=== PATIENT | female | born 1995 | race Caucasian/White ===

== ENCOUNTER 2018-05-14 19:26 | Emergency (ER) | payer BC ==
[~2018-05-14] VITALS: Ht 162.6 cm; Wt 75.7 kg
[2018-05-14 20:00] VITALS: BP_SYST 133
[2018-05-14] MEDS ORDERED: CYCLOBENZAPRINE HCL 10 MG TABLET (FLEXERIL) PO ONE (20:30)
[2018-05-14] MEDS ORDERED: KETOROLAC TROMETHAMINE 15 MG VIAL IM ONE (20:30)
[2018-05-14 21:13] VITALS: BP_SYST 131
== END 2018-05-14 21:13 | disposition home or self-care (01) ==
LOC: SED 19:26
DX: S39.012A Strain of muscle, fascia and tendon of lower back, initial encounter (principal); X50.0XXA Overexertion from strenuous movement or load, initial encounter; Y93.89 Activity, other specified; Y92.89 Other specified places as the place of occurrence of the external cause; Y99.8 Other external cause status
CPT/HCPCS: 96372; 99284; J1885